=== PATIENT | female | born 1945 | race Two or more races ===

== ENCOUNTER → 2018-07-08 12:47 | Outpatient (CLI) | payer OTHER | END | disposition home or self-care (01) | LOC: EKG 12:47 | DX: R07.89 Other chest pain (principal); Z01.818 Encounter for other preprocedural examination; I10 Essential (primary) hypertension ==

== ENCOUNTER → 2018-11-19 08:48 | Outpatient (CLI) | payer OTHER | END | disposition home or self-care (01) | LOC: LAB 08:48 | DX: D68.8 Other specified coagulation defects (principal); E78.2 Mixed hyperlipidemia; N39.0 Urinary tract infection, site not specified; R07.89 Other chest pain; I10 Essential (primary) hypertension ==

== ENCOUNTER 2021-03-28 07:15 | Inpatient (IN) | payer OTHER ==
[~2021-03-28] VITALS: Ht 152.4 cm; Wt 63.5 kg
[2021-03-28] MEDS ORDERED: ATORVASTATIN CA10 MG PO (09:45)
[2021-03-28] MEDS ORDERED: PROLIA60 MG/1 ML SUBCUTANEO (09:46)
[2021-03-28] MEDS ORDERED: TAPAZOLE5 MG PO (10:45)
[2021-04-02] MEDS ORDERED: SIMVASTATIN40 MG (09:29)
== END 2021-04-04 19:02 | DRG 470 ==
LOC: O/R 04-02 05:27 → SURG 04-02 05:27 → SURH 04-02 07:00 → SURG 04-02 11:24
PROVIDERS: ADMIT Orthopaedic Surgery; ATTEND Orthopaedic Surgery
PROC: 0SRC0J9 Replacement of Right Knee Joint with Synthetic Substitute, Cemented, Open Approach (ICD-10-PCS; principal; 2021-04-02 07:00)
DX: M17.11 Unilateral primary osteoarthritis, right knee (principal); D62 Acute posthemorrhagic anemia; M85.861 Other specified disorders of bone density and structure, right lower leg; M85.661 Other cyst of bone, right lower leg; E05.80 Other thyrotoxicosis without thyrotoxic crisis or storm; E78.00 Pure hypercholesterolemia, unspecified; Z20.822 Contact with and (suspected) exposure to COVID-19

== ENCOUNTER 2021-08-05 08:27 | Outpatient (CLI) | payer OTHER ==
[~2021-08-05 08:27] MED LIST: ATORVASTATIN CA10 MG PO; PROLIA60 MG/1 ML SUBCUTANEO; SIMVASTATIN40 MG; TAPAZOLE5 MG PO
== END 2021-08-05 08:29 | disposition home or self-care (01) ==
LOC: RAD 08:27
PROVIDERS: ATTEND Orthopaedic Surgery
DX: M25.561 Pain in right knee (principal)

== ENCOUNTER 2023-10-13 07:45 | Inpatient (IN) | payer OTHER ==
[~2023-10-13] VITALS: Ht 154.9 cm; Wt 66.7 kg
[2023-10-13 09:20] LABS: HEMATOCRIT 36.8 % (36.0-45.00); HEMOGLOBIN 12.4 g/dL (12.0-15.00); MEAN CELL VOLUME 86.7 fL (80.00-100.00); MEAN CORPUSCULAR HEMOGLOBIN 29.2 pg (27.00-32.0); MEAN CORPUSCULAR HGB CONC 33.7 g/dl (32.0-36.0); PLATELET COUNT 189 K/uL (150-450); RED BLOOD COUNT 4.25 M/uL (4.00-6.00); RED CELL DISTRIBUTION WIDTH 13.6 % (11.5-14.5)
[2023-10-13 09:29] LABS: PH,URINE 6.5 (5.0-8.0); URINE APPEARANCE Cloudy; URINE BILIRRUBIN Negative (NEGATIVE); URINE BLOOD Negative; URINE COLOR Yellow; URINE GLUCOSE Negative (NEGATIVE); URINE KETONE Negative (NEGATIVE); URINE LEUKOCYTE Negative; URINE NITRATE Negative; URINE PROTEIN Negative (NEGATIVE); URINE UROBILINOGEN 0.2 E.U./dl
[2023-10-13 09:33] LABS: URINE BACTERIA 98.2 uL (0.0-1933); URINE EPITHELIAL CELLS 11.4 uL (0.0-38.8); URINE RBC 21.5 uL (0.0-20.8)
[2023-10-13 09:36] LABS: URINE WBC 1.6 uL (0.0-23.2)
[2023-10-13 09:45] VITALS: BP 160/92
[2023-10-13 10:05] LABS: INR 0.99; PROTHROMBIN TIME 10.8 SECONDS (9.0-11.5)
[2023-10-13 10:08] LABS: ALBUMIN 3.8 gm/dL (3.4-5.0); BILIRUBIN TOTAL 0.65 mg/dL (0.3-1.2); CREATININE SERUM 0.65 mg/dL (0.55-1.02); GFR 87.7; GLOBULINA 3.7 G/DL (2.4-3.5); POTASSIUM 4.69 mEq/L (3.5-5.1); TOTAL PROTEIN 7.5 gm/dL (6.4-8.2)
[2023-10-20] MEDS ORDERED: CEFAZOLIN SODIUM 1,000 MG VIAL ONE ×2 (07:03→10:40)
[2023-10-20] MEDS ORDERED: TRANEXAMIC ACID 100MG/1ML (1000MG) AMPUL IV ONE (07:03)
[2023-10-20] MEDS ORDERED: BUPIVACAINE HCL 0.5% 50ML VIAL ONE (07:08)
[2023-10-20] MEDS ORDERED: LIDOCAINE HCL 1%/EPINEPHRINE 20ML VIAL IJ ONE (07:08)
[2023-10-20] MEDS ORDERED: KETOROLAC TROMETHAMINE 60 MG VIAL IM ONE (08:30)
[2023-10-20] MEDS ORDERED: MORPHINE SULFATE 4 MG/ML VIAL IV ONE (08:45)
[2023-10-20] MEDS ORDERED: ONDANSETRON HCL 2 MG/ML VIAL IV PRN (09:30)
[2023-10-20] MEDS ORDERED: OxyCODONE HCL/APAP UD (PERCOCET) PO PRN (09:30)
[2023-10-20] MEDS ORDERED: CEFAZOLIN SODIUM 1,000 MG VIAL IV SCH ×3 (10:55→12:00)
[2023-10-20] MEDS ORDERED: MORPHINE SULFATE 4 MG/ML CARTRIDGE IV SCH (12:00)
[2023-10-20 13:00] VITALS: BP 136/73; O2SAT 96
[2023-10-20 16:00] VITALS: BP 129/69; O2SAT 95
[2023-10-20 20:00] VITALS: BP 130/71; O2SAT 98
[2023-10-20] MEDS ORDERED: ORPHENADRINE CITRATE 100 MG TABLET PO SCH (21:00)
[2023-10-20] MEDS ORDERED: GABAPENTIN 100 MG CAPSULE PO SCH (21:00)
[2023-10-21 00:43] VITALS: BP 146/79; O2SAT 100
[2023-10-21 07:06] LABS: HEMATOCRIT 31.5 % (36.0-45.00); HEMOGLOBIN 11.1 g/dL (12.0-15.00); MEAN CELL VOLUME 83.9 fL (80.00-100.00); MEAN CORPUSCULAR HEMOGLOBIN 29.6 pg (27.00-32.0); MEAN CORPUSCULAR HGB CONC 35.3 g/dl (32.0-36.0); RED BLOOD COUNT 3.75 M/uL (4.00-6.00); RED CELL DISTRIBUTION WIDTH 13.6 % (11.5-14.5)
[2023-10-21 07:13] LABS: PLATELET COUNT 149 K/uL (150-450)
[2023-10-21 08:05] VITALS: BP 170/88; O2SAT 96
[2023-10-21] MEDS ORDERED: ENOXAPARIN SODIUM 30 MG/0.3 ML SYRINGE SUBCUTANEO SCH (09:00)
[2023-10-21] MEDS ORDERED: METHIMAZOLE 5 MG TABLET PO SCH (09:00)
[2023-10-21] MEDS ORDERED: SOD FERRIC GLUC COMPLX/SUCROSE 62.5 MG/5 ML AMPUL IV SCH (12:12)
[2023-10-21] MEDS ORDERED: Cyanocobalamin/Mecobalamin 1 TAB.SL SL SCH (12:12)
[2023-10-21] MEDS ORDERED: VITAMIN B COMPLEX 1 EACH PO SCH (12:12)
[2023-10-21 15:20] VITALS: BP 183/94; O2SAT 95
[2023-10-22] VITALS: BP 141/71; O2SAT 92
[2023-10-22 06:59] LABS: HEMATOCRIT 30.5 % (36.0-45.00); HEMOGLOBIN 10.6 g/dL (12.0-15.00); MEAN CELL VOLUME 84.7 fL (80.00-100.00); MEAN CORPUSCULAR HEMOGLOBIN 29.6 pg (27.00-32.0); MEAN CORPUSCULAR HGB CONC 34.9 g/dl (32.0-36.0); PLATELET COUNT 153 K/uL (150-450); RED CELL DISTRIBUTION WIDTH 12.9 % (11.5-14.5)
[2023-10-22 08:00] VITALS: BP 135/71; O2SAT 96
== END 2023-10-22 17:45 | DRG 470 ==
LOC: O/R 10-20 05:38 → SURG 10-20 05:38 → SURH 10-20 07:45 → SURG 10-20 10:45
PROVIDERS: ADMIT Orthopaedic Surgery; ATTEND Orthopaedic Surgery
PROC: 0SRD0JZ Replacement of Left Knee Joint with Synthetic Substitute, Open Approach (ICD-10-PCS; principal; 2023-10-20 10:00)
DX: M17.12 Unilateral primary osteoarthritis, left knee (principal); D62 Acute posthemorrhagic anemia; M85.662 Other cyst of bone, left lower leg